=== PATIENT | female | born 1960 | race Caucasian/White ===

== ENCOUNTER 2020-08-06 08:35 | Day surgery (SDC) | payer BC ==
[~2020-08-06] VITALS: Ht 154.9 cm; Wt 127.0 kg
[~2020-08-06 08:35] MED LIST: CEFAZOLIN 1 GM IVPB PREMIX 50 ML IV ONE
[2020-08-06 09:57] LABS: HCG,QUAL RESULT NEGATIVE (NEGATIVE)
[2020-08-06] MEDS ORDERED: MEPERIDINE HCL/PF 25 MG/ML DISP.SYRIN IVP PRN (11:00)
[2020-08-06] MEDS ORDERED: HYDROmorphone 1 MG INJ. 1 MG/ML AMPUL IVP PRN ×2 (11:00)
[2020-08-06] MEDS ORDERED: METOCLOPRAMIDE HCL 10 MG/2 ML VIAL IVP PRN (11:00)
[2020-08-06] MEDS ORDERED: hydrALAZINE HCL 20 MG/ML VIAL IVP PRN (11:00)
[2020-08-06] MEDS ORDERED: LR 1,000 ML IV SCH (11:00)
[2020-08-06] MEDS ORDERED: MIDAZOLAM HCL 2 MG/2 ML VIAL (VERSED) IVP PRN (11:00)
[2020-08-06] MEDS ORDERED: ONDANSETRON HCL 4 MG/2 ML VIAL IVP PRN (11:00)
[2020-08-06] MEDS ORDERED: LABETALOL 100 MG/ 20ML VIAL IVP PRN (11:00)
[2020-08-06] MEDS ORDERED: HYDROcodone/ACETAMIN 5-325 MG TAB (NORCO/ VICODIN) PO PRN ×2 (12:45)
[2020-08-06] MEDS ORDERED: HYDROcodone/ACETAMIN 5-325 MG TAB (NORCO/ VICODIN) ONE (12:46)
[2020-08-06 13:33] VITALS: BP_SYST 161
== END 2020-08-06 15:10 | disposition home or self-care (01) ==
LOC: SDS 08:35 → SMU 08:37 → SDS 15:10
PROVIDERS: ATTEND Colon & Rectal Surgery
DX: K80.10 Calculus of gallbladder with chronic cholecystitis without obstruction (principal); I10 Essential (primary) hypertension; E03.9 Hypothyroidism, unspecified; E66.01 Morbid (severe) obesity due to excess calories; E11.9 Type 2 diabetes mellitus without complications; G47.00 Insomnia, unspecified; M17.10 Unilateral primary osteoarthritis, unspecified knee; Z20.828 Contact with and (suspected) exposure to other viral communicable diseases; Z79.899 Other long term (current) drug therapy
CPT/HCPCS: 47562; 84703; 88304; C1727; C1758; J0690; Q9967; U0003